=== PATIENT | female | born 1995 | race Caucasian/White ===

== ENCOUNTER 2017-05-25 13:19 | Emergency (ER) | payer MEDICAID ==
[~2017-05-25] VITALS: Ht 157.5 cm; Wt 54.9 kg
[~2017-05-25 13:19] MED LIST: APAP/BUTALBITAL1 TA1 PO; BACTRIM DS 8001 TAB PO; BENTYL20 MG PO; BIRTH CONTROL; BUPRENORPHINE H1 TA2 SL; DICLOFENAC 50MG50 MG PO; DICYCLOMINE HCL20 MG PO; ESTRACE 2MG. TAB2 MG PO; ETODOLAC400 MG PO; IMPLANON68 MG ID; IRON TABLETS325 MG PO; KEFLEX 500MG.500 MG PO; KEFLEX500 M1 PO; LABETALOL200 MG PO; MUCINEX ER600 MG PO; NOMEDS *; NOMEDS XX; ONDANSETRON4 M1 PO; ORTHO TRI-CYCLE1 TAB PO; PRENATAL PLUS1 TA1 PO; ROBAXIN500 M1 PO; SERTRALINE 50MG50 MG PO; STERAPRED DS10 MG PO; VOLTAREN75 MG PO; ZANTAC 150150 MG OR; ZITHROMAX Z PA250 MG PO; ZOFRAN ODT8 MG PO; ZOLOFT25 MG PO
[2017-05-25 13:49] LABS: HEMOGLOBIN 14.7 g/dL (12.2-16.2)
[2017-05-25 13:50] LABS: LYMPH # 1.2 K/mm3 (0.7-4.5); LYMPH % 18.9 % (10-50.0)
--- NOTE | 2017-05-25 14:13 | Emergency Room Report ---
History of Present Illness Time Seen by 135Florentin Presenting Problem in Triage Pt arrived:Walked Presenting Problem:PT STATES SHE IS 3 WEEKS AND HAS STOPPED USING HER SUBOXONE ON SUNDAY. PT IS NAUSEATED, BODY ACHES, LIGHT HEADED. 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 N Clinical Suspician of Infection? N Mental Status: 1 - Regular (Normal Baseline) Sepsis Risk:Low Sepsis Risk Have you (or family members/close friends) recently traveled outside the [place]? N If Yes, where/when: Have you had exposure to infectious disease within the past month? TB? Other? Specify: Comment The patient complains of symptoms of Suboxone withdrawal. She has been on Suboxone for a couple of years. She stopped taking it 6 days ago after she found out she was 9 days ago. Approximately 2 days ago she began having some vomiting, diarrhea, chills, sweats, cravings. She estimates she is 3 weeks . She is 1. She has not had a visit for this , but her wind site manager is Dr. Rodriguez. She went through detox at [facility] years ago and requests that we consult them to see if they would accept her as an inpatient. ALLERGIES Coded Allergies: No Known Allergies (04/26/17) Home Medications Reported Medications BUPRENORPHINE HCL/NALOXONE HCL (Buprenorphin-Naloxon 8-2 MG Sl) 2 TAB SL BID #13 History Medical History General CAD? No Angina: No CT: No Hypertension? Yes Hyperlipidemia? No CHF? No DVT? No PE? No COPD? No Asthma? Yes Anemia? No GERD? No Gastric ulcers? No GI Bleed? No Hernia? No Thyroid Problems? No Hypothyroidism? No CVA? No Seizures? No Diabetes? No Renal Insuffiency? No End Stage Renal Disease? No UTI? No Stones? No GB Disease: Yes Nephritic Syndrome? No Asplenia? No Hepatitis? Yes Sickle Cell Disease? No Arthritis? No Migraines? No Cataracts? No Glaucoma? No MRSA? No HIV? No TB? No Anxiety? Yes Depression? Yes Cancer? 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 Est.Due Date 02/11/[address] RODRIGUEZ Family History Family Hx Diabetes No CAD No Hypertension No Hyperlipidemia No Cancer No TB No Social History Smoking Hx Smoker: Current Every Day Smoker Tobacco: Yes Type Cigarettes Packs/day < 1 Pack Alcohol Alcohol: No Review of Systems All Other Systems Reviewed and Negative Constitutional diaphoresis, malaise Gastrointestinal abdominal pain, diarrhea, vomiting Musculoskeletal joint pain, muscle pain Psychiatric/Neurological headache Physical Exam Vital Signs Vital Signs Date Time Temp Pulse Resp B/P Pulse O2 O2 Flow FiO2 Ox Delivery Rate 05/25 1550 87 18 132/77 97 05/25 1509 87 18 132/77 97 05/25 1402 100 18 98 05/25 1325 98.8 103 18 144/84 98 General Appearance no apparent distress Eye Exam - bilateral eye normal exam, bilateral eye PERRL, bilateral eye EOMI Ear, Nose, Throat hearing grossly normal, normal ENT inspection Neck normal inspection, non-tender, supple, full range of motion Respiratory Status Yes: trachea midline, chest symmetrical, non tender chest. No: respiratory distress. Lung Sounds bilateral: normal breath sounds, lungs clear. 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 No Candelario was queried for this patient? Yes Comment [id number] rxs. last rx buprenorphine on 05/19/17, 12 day supply. Results/Orders Laboratory Tests 05/25/17 1507: Opiates Screen NEGATIVE, Urine Methadone Screen NEGATIVE, Barbiturates NEGATIVE, Phencyclidine Screen NEGATIVE, Amphetamines Screen NEGATIVE, Benzodiazepines Screen NEGATIVE, Cocaine Screen NEGATIVE, Marijuana (THC) Screen NEGATIVE 05/25/17 1340: Sodium 138, Potassium 4.0, Chloride 106, Carbon Dioxide 26, BUN 9, Creatinine 0.7, Estimated Creat Clear 108, Estimated GFR (MDRD) 104, Glucose 93, Calcium 8.9, Total Bilirubin 0.6, AST 5 L, ALT 14, Alkaline Phosphatase 57, Total Protein 7.6, Albumin 4.0, Globulin 3.6 H, Albumin/Globulin Ratio 1.1, WBC 6.5, RBC 4.82, Hgb 14.7, Hct 43.5, MCV 90.3, RDW 13.4, Plt Count 156, MPV 9.2, Gran % 78.0, Gran # 5.1, Lymphocytes % 18.9, Monocytes % 3.1, Lymphocytes # 1.2, Monocytes # 0.2, PUBS MCHC 33.8, MCH 30.5 Current Medication Orders Sig/Sangeetha Start time Last Medication Dose Route Stop Time Status Admin Metoclopramide HCl 0 .STK-MED ONE 05/25 1514 DC .ROUTE Metoclopramide HCl 5 MG ONCE ONE 05/25 1445 DC 05/25 IVP 05/25 1446 1516 Sodium Chloride 1,000 ML .Q1H1M 05/25 1415 DC 05/25 IV 05/25 1515 1408 Sodium Chloride 10 ML PRN PRN 05/25 1415 DCD IV 05/26 1404 Sodium Chloride 1,000 ML .STK-MED ONE 05/25 1406 DC IV Sodium Chloride 10 ML PRN PRN 05/25 1345 DCD IV 05/26 1332 Orders Procedure Date/time Status DRUG ABUSE SCREEN (TRIAGE) 05/25 1357 Complete IV SALINE LOCK 05/25 1332 Active URINE 05/25 1332 Complete CBC WITH AUTO DIFF 05/25 1332 Complete CHEM 12 PROFILE 05/25 1332 Complete Progress - 2:35 PM: Jumana Swanson declines transfer because the patient is . Patient informed. She prefers that we investigate other inpatient detox programs. She would prefer to be inpatient. Call placed to [facility]. 2:50 PM: Nurse reports that the patient's father called and stated that she had been taking one quarter of a tablet of Suboxone and was recently put on some new medication by the Suboxone clinic to try and get her off of Suboxone. He does not know the name of the medication. 3:53 PM: Nurse reports that the patient LEFT the emergency department, eloped without further treatment. She apparently told the nurse she did not want to go to a long-term program and just decided to leave, not waiting for further instructions. Departure Departure Disposition Against Medical Advice Clinical Impression Primary Impression: Drug withdrawal Qualifiers: Substance type: opioid Qualified Code: F11.23 - Opioid dependence with withdrawal Condition STABLE ED Critical Care Critical Care No at 1601
--- NOTE | 2017-05-25 14:13 | Emergency Room Report ---
History of Present Illness Time Seen by 135Florentin Presenting Problem in Triage Pt arrived:Walked Presenting Problem:PT STATES SHE IS 2 WEEKS AND HAS STOPPED USING HER SUBOXONE ON SUNDAY. PT IS NAUSEATED, BODY ACHES, LIGHT HEADED. 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 N Clinical Suspician of Infection? N Mental Status: 1 - Regular (Normal Baseline) Sepsis Risk:Low Sepsis Risk Have you (or family members/close friends) recently traveled outside the [place]? N If Yes, where/when: Have you had exposure to infectious disease within the past month? TB? Other? Specify: Comment The patient complains of symptoms of Suboxone withdrawal. She has been on Suboxone for a couple of years. She stopped taking it 6 days ago after she found out she was 9 days ago. Approximately 2 days ago she began having some vomiting, diarrhea, chills, sweats, cravings. She estimates she is 3 weeks . She is 1. 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 She went through detox at [facility] years ago and requests that we consult them to see if they would accept her as an inpatient. ALLERGIES Coded Allergies: No Known Allergies (04/26/17) Home Medications Reported Medications BUPRENORPHINE HCL/NALOXONE HCL (Buprenorphin-Naloxon 8-2 MG Sl) 2 TAB SL BID #13 History Medical History General CAD? No Angina: No [place]: No Hypertension? Yes Hyperlipidemia? No CHF? No DVT? No PE? No COPD? No Asthma? Yes Anemia? No GERD? No Gastric ulcers? No GI Bleed? No Hernia? No Thyroid Problems? No Hypothyroidism? No CVA? No Seizures? No Diabetes? No Renal Insuffiency? No End Stage Renal Disease? No UTI? No Stones? No GB Disease: Yes Nephritic Syndrome? No Asplenia? No Hepatitis? Yes Sickle Cell Disease? No Arthritis? No Migraines? No Cataracts? No Glaucoma? No MRSA? No HIV? No TB? No Anxiety? Yes Depression? Yes Cancer? 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.Due Date 02/11/[address] RODRIGUEZ Family History Family Hx Diabetes No CAD No Hypertension No Hyperlipidemia No Cancer No TB No Social History Smoking Hx Smoker: Current Every Day Smoker Tobacco: Yes Type Cigarettes Packs/day < 1 Pack Alcohol Alcohol: No Review of Systems All Other Systems Reviewed and Negative Constitutional diaphoresis, malaise Gastrointestinal abdominal pain, diarrhea, vomiting Musculoskeletal joint pain, muscle pain Psychiatric/Neurological headache Physical Exam Vital Signs Vital Signs Date Time Temp Pulse Resp B/P Pulse O2 O2 Flow FiO2 Ox Delivery Rate 05/25 1550 87 18 132/77 97 05/25 1509 87 18 132/77 97 05/25 1402 100 18 98 05/25 1325 98.8 103 18 144/84 98 General Appearance no apparent distress Eye Exam - bilateral eye normal exam, bilateral eye PERRL, bilateral eye EOMI Ear, Nose, Throat hearing grossly normal, normal ENT inspection Neck normal inspection, non-tender, supple, full range of motion Respiratory Status Yes: trachea midline, chest symmetrical, non tender chest. No: respiratory distress. Lung Sounds bilateral: normal breath sounds, lungs clear. 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 No Candelario was queried for this patient? Yes Comment [id number] rxs. last rx buprenorphine on 05/19/17, 12 day supply. Results/Orders Laboratory Tests 05/25/17 1507: Opiates Screen NEGATIVE, Urine Methadone Screen NEGATIVE, Barbiturates NEGATIVE, Phencyclidine Screen NEGATIVE, Amphetamines Screen NEGATIVE, Benzodiazepines Screen NEGATIVE, Cocaine Screen NEGATIVE, Marijuana (THC) Screen NEGATIVE 05/25/17 1340: Sodium 138, Potassium 4.0, Chloride 106, Carbon Dioxide 26, BUN 9, Creatinine 0.7, Estimated Creat Clear 108, Estimated GFR (MDRD) 104, Glucose 93, Calcium 8.9, Total Bilirubin 0.6, AST 5 L, ALT 14, Alkaline Phosphatase 57, Total Protein 7.6, Albumin 4.0, Globulin 3.6 H, Albumin/Globulin Ratio 1.1, WBC 6.5, RBC 4.82, Hgb 14.7, Hct 43.5, MCV 90.3, RDW 13.4, Plt Count 156, MPV 9.2, Gran % 78.0, Gran # 5.1, Lymphocytes % 18.9, Monocytes % 3.1, Lymphocytes # 1.2, Monocytes # 0.2, PUBS MCHC 33.8, MCH 30.5 Current Medication Orders Sig/Sangeetha Start time Last Medication Dose Route Stop Time Status Admin Metoclopramide HCl 0 .STK-MED ONE 05/25 1514 DC .ROUTE Metoclopramide HCl 5 MG ONCE ONE 05/25 1445 DC 05/25 IVP 05/25 1446 1516 Sodium Chloride 1,000 ML .Q1H1M 05/25 1415 DC 05/25 IV 05/25 1515 1408 Sodium Chloride 10 ML PRN PRN 05/25 1415 DCD IV 05/26 1404 Sodium Chloride 1,000 ML .STK-MED ONE 05/25 1406 DC IV Sodium Chloride 10 ML PRN PRN 05/25 1345 DCD IV 05/26 1332 Orders Procedure Date/time Status DRUG ABUSE SCREEN (TRIAGE) 05/25 1357 Complete IV SALINE LOCK 05/25 1332 Active URINE 05/25 1332 Complete CBC WITH AUTO DIFF 05/25 1332 Complete CHEM 12 PROFILE 05/25 1332 Complete Progress - 2:35 PM: Jumana Swanson declines transfer because the patient is . Patient informed. She prefers that we investigate other inpatient detox programs. She would prefer to be inpatient. Call placed to [facility]. 2:50 PM: Nurse reports that the patient's father called and stated that she had been taking one quarter of a tablet of Suboxone and was recently put on some new medication by the Suboxone clinic to try and get her off of Suboxone. He does not know the name of the medication. 3:53 PM: Nurse reports that the patient LEFT the emergency department, eloped without further treatment. She apparently told the nurse she did not want to go to a long-term program and just decided to leave, not waiting for further instructions. Departure Departure Disposition Against Medical Advice Clinical Impression Primary Impression: Drug withdrawal Qualifiers: Substance type: opioid Qualified Code: F11.23 - Opioid dependence with withdrawal Condition STABLE ED Critical Care Critical Care No at 1601
[2017-05-25 15:25] LABS: AMPHETAMINES/METAMPHETAMINES NEGATIVE ng/mL (<1000)
[2017-05-25 15:50] VITALS: BP 132/77
== END 2017-05-25 15:45 | disposition left against medical advice (07) ==
LOC: ER 13:19
PROVIDERS: Emergency Medicine
DX: F11.23 Opioid dependence with withdrawal (principal); Z34.81 Encounter for supervision of other normal pregnancy, first trimester; I10 Essential (primary) hypertension; J45.909 Unspecified asthma, uncomplicated; F41.8 Other specified anxiety disorders; Z72.0 Tobacco use

== ENCOUNTER 2017-05-29 15:17 | Emergency (ER) | payer MEDICAID ==
[~2017-05-29] VITALS: Ht 157.5 cm; Wt 54.9 kg
--- NOTE | 2017-05-29 16:05 | Urgent Treatment Center Report ---
History of Present Issue Date/Time Seen by Provider 05/29/17 0405 Visit Reason Pt arrived:Walked Presenting Problem:REPORTS HEADACHES, COUGH, JEREMIAH EAR PAIN AND HEADACHES. STATES SORE THROAT X2 WEEKS. Location if Accident: Onset of symptoms date/time:/ or onset unknown for:MEDICAL HX UNKNOWN Have you (or family members/close friends) recently traveled outside the [place]? N If Yes, where/when: Have you had exposure to infectious disease within the past month? TB? Other? Specify: Patient state that she has had headache, cough, pain in both ears and sore throat for over 2 weeks now State that she recently found out she was 3 weeks . State that her mother and brother was diagnosed with Strep throat today and she was worried so she came in to get checked ALLERGIES Coded Allergies: No Known Allergies (04/26/17) Home Medications Reported Medications BUPRENORPHINE HCL/NALOXONE HCL (Buprenorphin-Naloxon 8-2 MG Sl) 2 TAB SL BID #13 History Medical History General CAD? No Angina: No [place]: No Hypertension? Yes Hyperlipidemia? No CHF? No DVT? No PE? No COPD? No Asthma? Yes Anemia? No GERD? No Gastric ulcers? No GI Bleed? No Hernia? No Thyroid Problems? No Hypothyroidism? No CVA? No Seizures? No Diabetes? No Renal Insuffiency? No UTI? No Stones? No GB Disease: Yes Nephritic Syndrome? No Asplenia? No Hepatitis? Yes Sickle Cell Disease? No Arthritis? No Migraines? No Cataracts? No Glaucoma? No MRSA? No HIV? No TB? No Anxiety? Yes Depression? Yes Cancer? No More? 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 Respiratory cough Physical Exam Vital Signs Vital Signs Date Time Temp Pulse Resp B/P Pulse O2 O2 Flow FiO2 Ox Delivery Rate 05/29 1530 98.7 79 20 106/52 97 General Appearance normal appearance, WD/WN, no apparent distress Ear, Nose, Throat sinus pain/drainage, nasal congestion, tonsillar swelling, Throat red, irritated, drainage noted Respiratory Status Yes: trachea midline, chest symmetrical, non tender chest. No: respiratory distress. 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 No Results/Orders Laboratory Tests 05/29/17 1534: Group A Strep Screen NOT DETECTED Orders Procedure Date/time Status [facility] STREP SCREEN 05/29 1540 Complete Departure Departure Time of Disposition 1617 Disposition DC Home or Self Care(routine) Clinical Impression Primary Impression: Viral upper respiratory infection Condition STABLE Referrals Viet Rainey MD (Family): 3 Days-Call Office Patient Instructions DI for Ear Pain-Adult, DI for Nasal Congestion, DI for Viral Upper Respiratory Infection -- Adult, Sore Throat Additional Instructions * Monitor Temp. Tylenol and/or Ibuprofen as needed. ER if fever is no less than 101 despite alternating Tylenol and Ibuprofen * Encourage fluids, water, Gatorade, powerade, pedialyte if infant/toddler/or child * Warm salt water gargles for throat irritation *Warm fluids *Sore throat lozenges *Sleep elevated *humidifier or vaporizer Follow up IMMEDIATELY for new or worsening of symptoms OR no noticeable improvement over the next 48-72 hours. 911 immediately for any life threatening symptoms such as chest pain or difficulty breathing Follow up with family doctor or Dr Rodriguez if symptoms persist Discharge Counseling Counseled pt/family regarding diagnosis, test results, home care, follow up needs at 1618
--- NOTE | 2017-05-29 16:05 | Urgent Treatment Center Report ---
History of Present Issue Date/Time Seen by Provider 05/29/17 2705 Visit Reason Pt arrived:Walked Presenting Problem:REPORTS HEADACHES, COUGH, JEREMIAH EAR PAIN AND HEADACHES. STATES SORE THROAT X2 WEEKS. Location if Accident: Onset of symptoms date/time:/ or onset unknown for:MEDICAL HX UNKNOWN Have you (or family members/close friends) recently traveled outside the [place]? N If Yes, where/when: Have you had exposure to infectious disease within the past month? TB? Other? Specify: Patient state that she has had headache, cough, pain in both ears and sore throat for over 2 weeks now State that she recently found out she was 3 weeks . State that her mother and brother was diagnosed with Strep throat today and she was worried so she came in to get checked ALLERGIES Coded Allergies: No Known Allergies (04/26/17) Home Medications Reported Medications BUPRENORPHINE HCL/NALOXONE HCL (Buprenorphin-Naloxon 8-2 MG Sl) 2 TAB SL BID #13 History Medical History General CAD? No Angina: No [place]: No Hypertension? Yes Hyperlipidemia? No CHF? No DVT? No PE? No COPD? No Asthma? Yes Anemia? No GERD? No Gastric ulcers? No GI Bleed? No Hernia? No Thyroid Problems? No Hypothyroidism? No CVA? No Seizures? No Diabetes? No Renal Insuffiency? No UTI? No Stones? No GB Disease: Yes Nephritic Syndrome? No Asplenia? No Hepatitis? Yes Sickle Cell Disease? No Arthritis? No Migraines? No Cataracts? No Glaucoma? No MRSA? No HIV? No TB? No Anxiety? Yes Depression? Yes Cancer? No More? 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 Respiratory cough Physical Exam Vital Signs Vital Signs Date Time Temp Pulse Resp B/P Pulse O2 O2 Flow FiO2 Ox Delivery Rate 05/29 1530 98.7 79 20 106/52 97 General Appearance normal appearance, WD/WN, no apparent distress Ear, Nose, Throat sinus pain/drainage, nasal congestion, tonsillar swelling, Throat red, irritated, drainage noted Respiratory Status Yes: trachea midline, chest symmetrical, non tender chest. No: respiratory distress. 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 No Results/Orders Laboratory Tests 05/29/17 1534: Group A Strep Screen NOT DETECTED Orders Procedure Date/time Status [facility] STREP SCREEN 05/29 1540 Complete Departure Departure Time of Disposition 1617 Disposition DC Home or Self Care(routine) Clinical Impression Primary Impression: Viral upper respiratory infection Condition STABLE Referrals Viet Rainey MD (Family): 3 Days-Call Office Patient Instructions DI for Ear Pain-Adult, DI for Nasal Congestion, DI for Viral Upper Respiratory Infection -- Adult, Sore Throat Additional Instructions * Monitor Temp. Tylenol and/or Ibuprofen as needed. ER if fever is no less than 101 despite alternating Tylenol and Ibuprofen * Encourage fluids, water, Gatorade, powerade, pedialyte if infant/toddler/or child * Warm salt water gargles for throat irritation *Warm fluids *Sore throat lozenges *Sleep elevated *humidifier or vaporizer Follow up IMMEDIATELY for new or worsening of symptoms OR no noticeable improvement over the next 48-72 hours. 911 immediately for any life threatening symptoms such as chest pain or difficulty breathing Follow up with family doctor or Dr Rodriguez if symptoms persist Discharge Counseling Counseled pt/family regarding diagnosis, test results, home care, follow up needs at 1618
[2017-05-29 16:18] VITALS: BP 106/52
== END 2017-05-29 16:20 | disposition home or self-care (01) ==
LOC: UTC 15:17
DX: J06.9 Acute upper respiratory infection, unspecified (principal); Z33.1 Pregnant state, incidental; F41.8 Other specified anxiety disorders; J45.909 Unspecified asthma, uncomplicated; F17.210 Nicotine dependence, cigarettes, uncomplicated

== ENCOUNTER 2017-06-16 21:07 | Emergency (ER) | payer MEDICAID ==
[~2017-06-16] VITALS: Ht 157.5 cm; Wt 59.0 kg
[2017-06-16] MEDS ORDERED: PRENATAL PLUS1 TA1 PO (21:15)
--- NOTE | 2017-06-16 21:19 | Emergency Room Report ---
History of Present Illness Time Seen by 2100 Presenting Problem in Triage Pt arrived:Walked Presenting Problem:C/O TINGLING ALL OVER BODY, HEADACHE, WEAKNESS AND SOB X 4-5 DAYS. 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 N Clinical Suspician of Infection? N Mental Status: 1 - Regular (Normal Baseline) Sepsis Risk:Possible Sepsis Risk Have you (or family members/close friends) recently traveled outside the [place]? N If Yes, where/when: Have you had exposure to infectious disease within the past month? N TB? Other? Specify: Source patient, RN notes reviewed, family, EMS, old records Exam Limitations no limitations Comment pt with 3-4 day hx of tingling in ext and has not felt well with sob but no fever or trauma and no rash or other c/o Cardiac Chest Pain Chest pain indicative of cardiac No Timing/Duration this evening Severity moderate ALLERGIES Coded Allergies: No Known Allergies (04/26/17) Home Medications Reported Medications MULTIVIT-MIN W/FE-FA ( Multivitamin Tablet) 1 TAB PO DAILY History Medical History General CAD? No Angina: No [place]: No Hypertension? Yes Hyperlipidemia? No CHF? No DVT? No PE? No COPD? No Asthma? Yes Anemia? No GERD? No Gastric ulcers? No GI Bleed? No Hernia? No Thyroid Problems? No Hypothyroidism? No CVA? No Seizures? No Diabetes? No Renal Insuffiency? No End Stage Renal Disease? No UTI? No Stones? No GB Disease: Yes Nephritic Syndrome? No Asplenia? No Hepatitis? Yes Sickle Cell Disease? No Arthritis? No Migraines? No Cataracts? No Glaucoma? No MRSA? No HIV? No TB? No Anxiety? Yes Depression? Yes Cancer? No More? 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 Respiratory denies cough, denies shortness of breath, denies wheezing Cardiovascular denies chest pain, denies syncope Gastrointestinal denies abdominal pain, denies diarrhea, denies vomiting Genitourinary denies: abnormal vaginal bleeding, dysuria, frequency, hesitancy, hematuria. Musculoskeletal denies back pain, denies joint pain, denies joint swelling, denies neck pain Skin denies rash Psychiatric/Neurological see HPI, denies headache, denies seizure, tingling Physical Exam Vital Signs Vital Signs Date Time Temp Pulse Resp B/P Pulse O2 O2 Flow FiO2 Ox Delivery Rate 06/160 99.1 83 20 109/68 100 06/169 99.1 104 20 144/89 100 - WBC >12,000 or <4,000 or 10% bands? 2 or more SIRS Criteria Met? B/P:144/89 MAP:107 Creatinine >2.0? UA output<0.5ml/kg/hr for 2 hrs? Platelet count >100,000? Lactate >2.0mmol/1? INR >1.2 or PTT > than 60 sec? Evidence of Organ Dysfunction? Provider documented clinical suspician of infection? N Sepsis Criteria Count: 2 Sepsis Risk: Possible Sepsis Risk General Appearance no apparent distress Eye Exam - bilateral eye PERRL, bilateral eye EOMI Ear, Nose, Throat normal ENT inspection Neck supple Respiratory Status No: respiratory distress. Lung Sounds bilateral: lungs clear. 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 No Results/Orders Laboratory Tests 06/16/172124: Sodium 137, Potassium 4.0, Chloride 103, Carbon Dioxide 27, BUN 12, Creatinine 0.6, Estimated Creat Clear 136, Estimated GFR (MDRD) 124, Glucose 88, Calcium 8.8, Total Bilirubin 0.1 L, AST 12 L, ALT 20, Alkaline Phosphatase 52, Total Protein 6.9, Albumin 3.5, Globulin 3.4 H, Albumin/Globulin Ratio 1.0 L, WBC 9.4, RBC 4.17 L, Hgb 12.8, Hct 38.3, MCV 92.1, RDW 13.3, Plt Count 145, MPV 8.0 , Gran % 66.8, Gran # 6.3, Lymphocytes % 25.8, Monocytes % 5.3, Eosinophils % 1.8, Basophils % 0.3, Lymphocytes # 2.4, Monocytes # 0.5, Eosinophils # 0.2, Basophils # 0.0, PUBS MCHC 33.4, MCH 30.7, Urine Color YELLOW, Urine Appearance SL CLOUDY, Urine pH 6.0, Ur Specific [place] 1.025, Urine Protein NEGATIVE, Urine Ketones TRACE H, Urine Blood NEGATIVE, Urine Nitrate NEGATIVE, Urine Bilirubin NEGATIVE, Urine Urobilinogen 0.2, Ur Leukocyte Esterase TRACE H, Urine WBC OCC, Ur Squamous Epith Cells 10-20, Amorphous Sediment 2+, Urine Mucus TRACE, Urine Glucose NEGATIVE Current Medication Orders Sig/Sangeetha Start time Last Medication Dose Route Stop Time Status Admin Sodium Chloride 10 ML PRN PRN 06/16 2130 AC IV 06/17 2119 Sodium Chloride 1,000 ML .Q4H 06/16 2130 AC 06/16 IV 06/17 Sodium Chloride 10 ML PRN PRN 06/16 2130 AC IV 06/17 2119 Sodium Chloride 1,000 ML .STK-MED ONE 06/16 2125 DC IV Orders Procedure Date/time Status IV SALINE LOCK 06/16 2120 Active URINALYSIS/COMPLETE 06/16 2120 Complete COMPLETE METABOLIC PANEL 06/16 2120 Complete CBC WITH AUTO DIFF 06/16 2120 Complete Departure Departure Time of Disposition 2258 Disposition DC Home or Self Care(routine) Clinical Impression Primary Impression: Acute viral syndrome Secondary Impressions: Qualifiers: Weeks of gestation: less than 8 weeks Qualified Code: Z3A.01 - Less than 8 weeks gestation of Condition STABLE Referrals Michael CONNOR,Mike Yuen Patient Instructions DI for -- Discomforts and Remedies Additional Instructions fluids and call ob pcp on sunday Discharge Counseling Counseled pt/family regarding diagnosis, follow up needs ED Critical Care Critical Care No at 2300
[2017-06-16 21:48] LABS: LYMPH # 2.4 K/mm3 (0.7-4.5); LYMPH % 25.8 % (10-50.0)
[2017-06-16 21:49] LABS: HEMOGLOBIN 12.8 g/dL (12.2-16.2); URINE BILIRUBIN - DIPSTICK NEGATIVE (NEG); URINE BLOOD NEGATIVE (NEG)
[2017-06-16 23:11] VITALS: BP 108/69
--- OUTSIDE RECORDS SUMMARY | 2017-06-17 06:12 | External Medical Summary Rpt | CCD ---
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 EMERGENCY 57351 [facility] 2 2 [facility] DEPARTMEN INC T VISIT LOW/MODER SEVERITY OFFICE 95582 [facility] GIBSON OUTPATIEN 2 2 [facility] 10 HEAL HEAL MINUTES OFFICE 10554 TAVIA SQUIRES OUTPATIEN 2 2 CATHI CATHI T VISIT 10 MINUTES HOSPITAL [facility] - 2 2 [facility] OUTPATIEN INC T OFFICE 29871 TAVIA SQUIRES OUTPATIEN 2 2 CATHI CATHI T VISIT 15 MINUTES OFFICE 46204 TAVIA SQUIRES OUTPATIEN 2 2 CATHI CATHI T VISIT 15 MINUTES OFFICE 00104 TAVIA SQUIRES OUTPATIEN 2 2 CATHI CATHI T VISIT 15 MINUTES OFFICE 88093 TAVIA SQUIRES OUTPATIEN 2 2 CATHI CATHI T VISIT 15 MINUTES OFFICE 08203 TAVIA OUTPATIEN 2 2 CATHI T VISIT 5 MINUTES OFFICE 96880 TAVIA SQUIRES OUTPATIEN 2 2 CATHI CATHI T VISIT 15 MINUTES OFFICE 81412 TAVIA SQUIRES OUTPATIEN 2 2 CATHI CATHI T VISIT 15 MINUTES OFFICE 06639 SQUIRES SQUIRES OUTPATIEN 1 1 CATHI CATHI T VISIT 15 MINUTES OFFICE 05073 [facility] 1 1 [facility]IN[facility] OF 15 ROLO MINUTES OFFICE 87912 [facility] S[facility] OUTPATIEN 1 1 [facility] VISIT CLIN[facility] OF 15 ROLO MINUTES OFFICE 95046 [facility] 1 1 [facility] T VISIT INTERNAL 15 MED MINUTES PERIODIC 26499 [facility] GIBSON PREVENTIV 1 1 [facility] PATIENT OFFICE 59074 [facility] GIBSON OUTPATIEN 1 1 [facility] 15 MINUTES OFFICE 69287 [facility] GIBSON OUTPATIEN 0 0 [facility] 15 MINUTES OFFICE 44825 [facility]OMEN'S S[facility]IR[facility], CONSULTAT 0 0 [facility] PATIENT [place] 40 MIN [facility] OFFICE 12125 [facility] GIBSON OUTPATIEN 0 0 [facility] 25 MINUTES PERIODIC 56755 [facility] GIBSON PREVENTIV 0 0 [facility] CENTER PATIENT 08-19YRS OFFICE 09990 [facility] MCKEMIE OUTPATIEN 0 0 [facility], T VISIT INTERNAL MINE F 15 MED MINUTES OFFICE 03109 [facility] GIBSON OUTPATIEN 0 0 [facility] 10 MINUTES OFFICE 24751 [facility]PATIEN 9 9 [facility] 15 BANK ACCT MINUTES OFFICE 69151 [facility] OUTPATIEN 9 9 [facility] 15 BANK ACCT MINUTES PERIODIC 30143 [facility] B[facility], PREVENTIV 9 9 [facility] E MED EST INTERNAL PATIENT MED 12-17YRS PERIODIC 74982 [facility]/CO [facility] PREVENTIV 9 9 [facility] MED EST [facility] PATIENT BANK ACCT -17YRS PERIODIC 79806 [facility] MEGHNA, PREVENTIV 8 8 [facility] A E MED EST INTERNAL PATIENT MED 12-YRS
--- OUTSIDE RECORDS SUMMARY | 2017-06-17 06:12 | External Medical Summary Rpt | CCD ---
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 SCIFRES, SINGLE 9 VISION DEYSI M VISION PLANO +/- 4.00 PER LENS FRAMES V2020 STEFFI SANCHEZ, PURCHASES 9 VISION DEYSI M OPH 51977 STEFFI INNAKIESHA, MEDICAL 9 VISION DEYSI Gore XM&EVAL COMPRHNSV ESTAB PT 1/ RPR&REFIT 30175 STEFFI SANCHEZ, G 9 VISION DEYSI M SPECTACLE S EXCEPT APHAKIA RADEX 07737 [facility] REINA, HAND 9 MEDICAL OSWALD MINIMUM 3 IMAGING VIEWS ASSOCIATE S RADEX 07705 [facility] REINA, WRIST 9 MEDICAL OSWALD COMPLETE IMAGING MINIMUM 3 ASSOCIATE VIEWS S SPMTRY 26080 [facility] MEGHNA, W/VC 8 [facility] A EXPIRATOR INTERNAL Y TAY MED W/WO MXML VOL VNTJ [facility] 82321 SUNDAR KWOK, MEDICAL 8 NITA V NITA V XM&EVAL COMPRHNSV ESTAB PT 1/> Encounters Encounter Start End Date Code Location Performer Type Date OFFICE 28427 [facility] AMAYA OUTPATIEN 7 7 [facility] T VISIT INTERNAL 15 MED MINUTES OFFICE 70788 [facility] OUTPATIEN 7 7 PHYSICIAN T VISIT S GROUP 15 MINUTES [facility]OSPITAL [facility] - 7 7 [facility] T OFFICE 75350 [facility] BESSON OUTPATIEN 7 7 VALLEY T VISIT INTERNAL 15 MED MINUTES OFFICE 27132 [facility] OUTPATIEN 7 7 PHYSICIAN T NEW 30 S GROUP MINUTES HOSPITAL [facility] - 7 7 [facility] OUT[facility] INC T EMERGENCY 37486 JAYLEEN VAN DEPT 7 7 EMERGENCY AXWELL VISIT HIGH PHYSICIAN SEVERITY& S THREAT [facility] OFFICE 68813 [facility] OUTPATIEN 7 7 VALLEY T VISIT INTERNAL 15 MED MINUTES OFFICE 47986 [facility] OUTPATIEN 6 6 PHYSICIAN T VISIT S GROUP 15 MINUTES EMERGENCY 11304 ANTONY GUY, 6 6 PHYSICIAN JR MORALES [facility], [facility] T VISIT HIGH/URGE NT SEVERITY HOSPITAL [facility] - 6 6 [facility] 40570 [facility] 6 6 [facility] INC T VISIT LOW/MODER SEVERITY EMERGENCY 51085 ANTONY GUY, 6 6 PHYSICIAN Cristian [facility] S, [facility] T VISIT HIGH/URGE NT SEVERITY EMERGENCY 47331 JAYLEEN DAY 6 6 [facility] HIGH/URGE S NT SEVERITY EMERGENCY 51641 ANTONY VILLAREAL DEPT 6 6 PHYSICIAN ROMEO VISIT S, [facility] HIGH SEVERITY& THREAT [facility] - 6 6 [facility] 01497 ANTONY MOLINA 6 6 PHYSICIAN U [facility] S, [facility] T VISIT MODERATE SEVERITY EMERGENCY 91199 ANTONY MOLINA 6 6 PHYSICIAN U [facility] S, [facility] T VISIT HIGH/URGE NT SEVERITY HOSPITAL [facility] - 6 6 [facility] 98369 [facility] 6 6 [facility] T VISIT LIMITED/M INOR PROB EMERGENCY 24973 ANTONY MOLINA 6 6 PHYSICIAN U [facility] S, [facility] T VISIT MODERATE SEVERITY OFFICE 12649 [facility] MERCEDES OUTPATIEN 5 5 [facility] T VISIT INTERNAL 15 MED MINUTES OFFICE 87026 [facility] DENISSE OUTPATIEN 5 5 NURSE ALISON CAN T VISIT PRACTITIO 15 NER GR MINUTES OFFICE 60007 [facility] HL DEPT HL DEPT 10 REENA REENA MINUTES OFFICE 15795 [facility]IS[facility] HLTH DEPT HLTH DEPT 10 REENA REENA MINUTES [facility] AR[facility]UR - 5 5 [facility] OUTPATIEN [facility] T OFFICE 70141 KMS PARDEEP-SELENA CONSULTAT 5 5 NURSE ALISON SAVAGE NEW/ESTAB NER GR PATIENT 40 MIN OFFICE 62047 [facility] MERCEDES OUTPATIEN 5 5 [facility] T VISIT INTERNAL 15 MED MINUTES HOSPITAL [facility] - 5 5 [facility]EN INC [facility] - 5 5 [facility] OUTPATIEN [facility] T EMERGENCY 34942 [facility] 5 5 EMERGENCY [facility] T VISIT PHYSICIAN HIGH/URGE S [facility] ARTHUR - 5 5 [facility] OUTPATIEN INC T Emergency LEONEL Villareal MD (ER) 4 20:56 4 21:50 [facility] Emergency LEONEL Wong MD (ER) 3 13:13 3 13:45 [facility] Emergency LEONEL Villareal MD (ER) 3 21:16 3 23:11 [facility] Emergency LEONEL Shah MD (ER) 3 11:48 3 13:54 [facility] OFFICE 12788 TAVIA SQUIRES OUTPATIEN 3 3 CATHI CATHI T VISIT 15 MINUTES HOSPITAL [facility] - 3 3 [facility] OUTPATIEN [facility] T OFFICE 06971 TAVIA SQUIRES OUTPATIEN 3 3 CATHI CATHI T VISIT 15 MINUTES OFFICE 57633 TAVIA SQUIRES OUTPATIEN 3 3 CATHI CATHI T VISIT 5 MINUTES OFFICE 94401 TAVIA SQUIRES OUTPATIEN 2 2 CATHI CATHI T VISIT 15 MINUTES HOSPITAL [facility] - 2 2 [facility]PAT[facility] INC T HOSPITAL [facility] - 2 2 [facility] OUTPATIEN INC T EMERGENCY 76086 [facility] 2 2 [facility] DEPARTMEN INC T VISIT LOW/MODER SEVERITY EMERGENCY 95734 ZAIN QUEZADA 2 2 EMERGENCY DEPARTMEN SERVICES T VISIT HIGH/URGE NT SEVERITY OFFICE 00889 [facility] GIBSON OUTPATIEN 2 2 [facility] 15 HEAL HEAL MINUTES EMERGENCY 7[address]68 [facility] DEPT 2 2 ROMEO ROMEO VISIT HIGH SEVERITY& THREAT [facility] ARTHUR - 2 2 [facility] OUTPATIEN INC T EMERGENCY 66365 AR[facility] 2 2 [facility] DEPARTMEN INC T VISIT LOW/MODER SEVERITY OFFICE 17369 [facility] GIBSON OUTPATIEN 2 2 [facility] 10 HEAL HEAL MINUTES OFFICE 19988 TAVIA SQUIRES OUTPATIEN 2 2 CATHI CATHI T VISIT 10 MINUTES HOSPITAL [facility] - 2 2 [facility] OUTPATI[facility] INC T OFFICE 45893 TAVIA SQUIRES OUTPATIEN 2 2 CATHI CATHI T VISIT 15 MINUTES OFFICE 85620 TAVIA SQUIRES OUTPATIEN 2 2 CATHI CATHI T VISIT 15 MINUTES OFFICE 13750 TAVIA SQUIRES OUTPATIEN 2 2 CATHI CATHI T VISIT 15 MINUTES OFFICE 24384 TAVIA SQUIRES OUTPATIEN 2 2 CATHI CATHI T VISIT 15 MINUTES OFFICE 01269 TAVIA OUTPATIEN 2 2 CATHI T VISIT 5 MINUTES OFFICE 04806 TAVIA SQUIRES OUTPATIEN 2 2 CATHI CATHI T VISIT 15 MINUTES OFFICE 82598 TAVIA SQUIRES OUTPATIEN 2 2 CATHI CATHI T VISIT 15 MINUTES OFFICE 23165 SQUIRES SQUIRES OUTPATIEN 1 1 CATHI CATHI T VISIT 15 MINUTES OFFICE 26869 [facility] S[facility] OUTPATIEN 1 1 [facility]ISIT [facility]IN[facility] OF 15 ROLO MINUTES OFFICE 90743 [facility] S[facility] OUTPATIEN 1 1 [facility] T VISIT CLINIC OF 15 ROLO MINUTES OFFICE 45627 [facility] BESSON OUTPATIEN 1 1 [facility] T VISIT INTERNAL 15 MED MINUTES PERIODIC 96208 [facility] GIBSON PREVENTIV 1 1 [facility] PATIENT OFFICE 96265 [facility] GIBSON OUTPATIEN 1 1 [facility] 15 MINUTES OFFICE 79151 [facility] GIBSON OUTPATIEN 0 0 [facility] 15 MINUTES OFFICE 68217 WOMEN'S SQUIRES, CONSULTAT 0 0 [facility] PATIENT [place] 40 MIN [facility] OFFICE 97655 ARTH[facility] GIBSON OUTPATIEN 0 0 [facility] 25 MINUTES PERIODIC 83347 AR[facility] GIBSON PREVENTIV 0 0 [facility] CENTER PATIENT 08-19YRS OFFICE 57082 [facility] MCKEMIE OUTPATIEN 0 0 [facility], T VISIT INTERNAL MINE F 15 MED MINUTES OFFICE 44344 [facility] GIBSON OUTPATIEN 0 0 [facility] 10 MINUTES OFFICE 16876 [facility] OUTPATIEN 9 9 [facility] 15 BANK ACCT MINUTES OFFICE 81450 [facility] OUTPATIEN 9 9 [facility] 15 BANK ACCT MINUTES PERIODIC 56581 [facility] BESSON, PREVENTIV 9 9 [facility] A E MED EST INTERNAL PATIENT MED 12-17YRS PERIODIC 98784 [facility] PREVENTIV 9 9 [facility] E MED EST [facility] PATIENT BANK ACCT -17YRS PERIODIC 31368 [facility] MEGHNA, PREVENTIV 8 8 [facility] A E MED EST INTERNAL PATIENT MED 12-YRS
--- OUTSIDE RECORDS SUMMARY | 2017-06-17 06:17 | External Medical Summary Rpt | CCD ---
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 IADNA 40222 ARTHUR GIBSON CHLAMYDIA 0 [facility] CENTER TRACHOMAT IS AMPLIFIED PROBE TQ SMR PRIM 59081 ARTHUR GIBSON SRC WET [address] [facility] CENTER NFCT AGT CONTRACEP S4993 ARTHUR GIBSON TIVE 0 [facility] HEALTH PILLS FOR [facility] CONTROL CYTP 20150 PATHOLOGY PATHOLOGY CERVICAL/ 0 & & VAGINAL CYTOLOGY CYTOLOGY REQ LAB LAB INTERP PHYSICIAN CYTP 68687 PATHOLOGY PATHOLOGY CERV/VAG 0 & & AUTO THIN CYTOLOGY CYTOLOGY LAYER LAB LAB PREP MNL SCREEN RADIOLOGI 79413 [place] Eva MOTLEY 0 MEDICAL DUNIA Baxter EXAMINATI IMAGING ON KNEE 3 ASSOCIATE VIEWS S CONTRACEP S4993 ARTHUR GIBSON TIELIZABETH 0 [facility] HEALTH PILLS FOR [facility] CONTROL CONTRACEP S4993 DHS/CO ARTHUR TIVE [address] [place] [address] HEALTH PILLS FOR [facility] BANK ACCT CONTROL URINE 68800 DHS/CO ARTHUR [address] [place] [address] TEST [facility] VISUAL BANK ACCT COLOR CMPRSN METHS CONTRACEP A4267 DHS/CO ARTHUR TIVE [address] [place] [address] CONDOM BANK ACCT MALE EACH CONTRACEP J7304 [facility]/CO ARTHUR TIVE [address] [place] [address] [facility] BANK ACCT CONTAININ G PATCH EA CONTRACEP J7304 DHS/CO ARTHUR TIVE [address] [place] [address] [facility] B[facility] ACCT CONTAININ G PATCH EA CONTRACEP A4267 DHS/CO ARTHUR TIVE [address] [place] [address] CONDOM BANK ACCT MALE EACH IADNA 25873 DHS/CO ARTHUR NEISSERIA 9 [facility] GONORRHOE BANK ACCT AE AMPLIFIED PROBE TQ IADNA 40394 DHS/CO ARTHUR CHLAMYDIA 9 [facility] TRACHOMAT BANK ACCT IS AMPLIFIED PROBE TQ CYTP 35335 DHS/CO ARTHUR CERV/VAG 9 [facility] AUTO [facility] LAYER BANK ACCT PREP MNL SCREEN RPR&REFIT 47926 STEFFI SANCHEZ, G 9 VISION DEYSI M SPECTACLE S EXCEPT APHAKIA SPHERE V2100 STEFFI SANCHEZ, SINGLE 9 VISION DEYSI M VISION PLANO +/- 4.00 PER LENS FRAMES V2020 STEFFI SANCHEZ, PURCHASES 9 VISION DEYSI M OPHTH 71821 STEFFI LIZAMAKIESHA, MEDICAL 9 VISION DEYSI M XM&EVAL COMPRHNSV ESTAB PT 1/ RADEX 96721 VIR[place]IA REINA, HAND 9 MEDICAL OSWALD MINIMUM 3 IMAGING VIEWS ASSOCIATE S RADEX 68327 [place] REINA, WRIST 9 MEDICAL OSWALD COMPLETE IMAGING MINIMUM 3 ASSOCIATE VIEWS S SPMTRY 63792 [facility] MEGHNA, W/VC 8 [facility] A EXPIRATOR INTERNAL Y TAY MED W/WO MXML VOL VNTJ [facility] 84774 SUNDAR KWOK, MEDICAL 8 NITA V NITA V XM&EVAL COMPRHNSV ESTAB PT 1/ Encounters Encounter Start End Date Code Location Performer Type Date OFFICE 25847 [facility] OUTPATIEN 7 7 [facility] T VISIT INTERNAL 15 MED MINUTES [facility] - 7 7 [facility] T OFFICE 67413 [facility] OUT[facility] 7 7 PHYSICIAN T VISIT S GROUP 15 MINUTES OFFICE 16250 [facility] OUTPATIEN 7 7 [facility] T VISIT INTERNAL 15 MED MINUTES OFFICE 59589 [facility] OUTPATI[facility] 7 7 PHYSICIAN T NEW 30 S GROUP MINUTES HOSPITAL AR[facility]UR - 7 7 [facility] OUTPATIEN INC T EMERGENCY 19966 [facility] 7 7 EMERGENCY [place]WE[place] VISIT HIGH PHYSICIAN SEVERITY& [facility] OFF[facility] 77726 [facility] [place] VISIT INTERNAL 15 MED MINUTES OFFICE 95597 [facility] 6 PHYSICIAN T VISIT S GROUP 15 MINUTES EMERGENCY 65620 ANTONY GUY, 6 6 PHYSICIAN JR Cristian [facility] S, [facility] HIGH/URGE NT SEVERITY EMERGENCY 21015 ANTONY GUY, 6 6 PHYSICIAN JR [facility] S, [facility] T VISIT HIGH/URGE NT SEVERITY EMERGENCY 53640 [facility] 6 6 [facility] T VISIT LOW/MODER SEVERITY HOSPITAL ARTHUR - 6 6 [facility] EMERGENCY 92171 JAYLEEN DAY 6 6 EMERGENCY DEPARTMEN T VISIT PHYSICIAN HIGH/URGE S NT SEVERITY EMERGENCY 49364 ANTONY HIGGINBOTHAM DEPT 6 6 PHYSICIAN ROMEO VISIT [facility] HIGH SEVERITY& [facility] H[facility]PITAL AR[facility] - 6 6 [facility] OUTPATI[facility] INC T EMERGENCY 50643 ANTONY MOLINA 6 6 PHYSICIAN U [facility] S, [facility] T VISIT MODERATE SEVERITY EMERGENCY 12010 ANTONY MOLINA 6 6 PHYSICIAN U [facility] S, [facility] T VISIT HIGH/URGE NT SEVERITY EMERGENCY 69722 ARTHUR 6 6 [facility] VISIT LIMITED/M INOR PROB HOSPITAL ARTHUR - 6 6 [facility] OUTPATIEN INC T EMERGENCY 80589 ANTONY MOLINA 6 6 PHYSICIAN U [facility] S, [facility] VISIT MODERATE SEVERITY OFFICE 57710 [facility] OUTPATIEN 5 5 [facility] JACIEL T VISIT INTERNAL 15 MED MINUTES OFFICE [address] [facility] KUNS-ADKI OUTPATIEN 5 5 NURSE NS CAN T VISIT PRACTITIO 15 NER GR MINUTES OFFICE 35303 [facility] 5 5 [facility] T VISIT [facility] DEPT [facility] DE[facility] 10 REENA REENA MINUTES OFFICE 78427 [facility] 5 5 [facility] T VISIT [facility] DEPT [facility] DEPT 10 REENA REENA MINUTES HOSPITAL ARTHUR - 5 5 [facility]EN [facility] OFFICE [address] [facility] PARDEEP-SELENA CONSULTAT 5 5 NURSE NS CAN ION PRACTITIO NEW/ESTAB NER GR PATIENT 40 MIN OFFICE 70382 [facility] OUT[facility]IEN 5 5 [facility] T VISIT INTERNAL 15 MED MINUTES HOSPITAL ARTHUR - 5 5 [facility]EN [facility] HOSPITAL ARTHUR - 5 5 [facility] EMERGENCY 53867 [facility] 5 5 EMER[facility] T VISIT PHYSICIAN HIGH/URGE S NT SEVERITY HOSPITAL AR[facility] - 5 5 [facility] ARTHUR - 3 3 [facility] OFFICE 82128 TAVIA SQUIRES OUTPATIEN 3 3 CATHI CATHI T VISIT 15 MINUTES OFFICE 53856 [facility] SQUIRES OUTPATIEN 3 3 CATHI CATHI T VISIT 15 MINUTES OFFICE 95838 [facility] SQUIRES OUTPATIEN 3 3 CATHI CATHI T VISIT 5 MINUTES OFFICE 18603 [facility] SQUIRES OUTPATIEN 2 2 CATHI CATHI T VISIT 15 MINUTES HOSPITAL ARTHUR - 2 2 [facility] OUTPATIEN [facility] ARTHUR - 2 2 [facility] OUTPATIEN INC T EMERGENCY 80317 ZAIN QUEZADA 2 2 EMERGENCY [facility] T VISIT HIGH/URGE NT SEVERITY EMERGENCY 43385 [facility] 2 2 [facility] INC T VISIT LOW/MODER SEVERITY OFFICE 01130 AR[facility] ARTHUR OUTPATIEN 2 2 [facility] 15 HEAL HEAL MINUTES EMERGENCY 33869 ARTHUR 2 2 [facility] DEPARTMEN INC T VISIT LOW/MODER SEVERITY EMERGENCY 10862 [facility] DEPT 2 2 ROMEO ROMEO VISIT HIGH SEVERITY& [facility] ARTHUR - 2 2 [facility] OUTPATIEN INC T OFFICE 29092 ARTHUR GILLESPIEON OUTPATIEN 2 2 [facility] 10 HEAL HEAL MINUTES OFFICE 22692 TAVIA SQUIRES OUTPATIEN 2 2 CATHI CATHI T VISIT 10 MINUTES HOSPITAL ARTHUR - 2 2 [facility] OUTPATIEN INC T OFFICE 23805 TAVIA SQUIRES OUTPATIEN 2 2 CATHI CATHI T VISIT 15 MINUTES OFFICE 78494 [facility] SQUIRES OUTPATIEN 2 2 CATHI CATHI T VISIT 15 MINUTES OFFICE 67736 TAVIA GARCIAE OUTPATIEN 2 2 CATHI CATHI T VISIT 15 MINUTES OFFICE 96996 TAVIA GARCIAE OUTPATIEN 2 2 CATHI CATHI T VISIT 15 MINUTES OFFICE 24478 SQUIRES OUTPATIEN 2 2 CATHI T VISIT 5 MINUTES OFFICE 23313 TAVIA SQUIRES OUTPATIEN 2 2 CATHI CATHI T VISIT 15 MINUTES OFFICE 25709 TAVIA GARCIAE OUTPATIEN 2 2 CATHI CATHI T VISIT 15 MINUTES OFFICE 08556 TAVIA SQUIRES OUTPATIEN 1 1 CATHI CATHI T VISIT 15 MINUTES OFFICE 67009 [facility] S[facility] OUTPATIEN 1 1 HEALTH [facility]I T VISIT CLINIC OF 15 ROLO MINUTES OFFICE 46116 [facility] S[facility] OUTPATIEN 1 1 HEALTH CATHI T VISIT CLINIC OF 15 ROLO MINUTES OFFICE 17401 [facility] OUTPATIEN 1 1 [facility] VISIT INTERNAL 15 MED MINUTES PERIODIC 74475 [facility] GIBSON PREVENTIV 1 1 [facility] PATIENT OFFICE 12026 [facility] GIBSON OUTPATIEN 1 1 [facility] 15 MINUTES OFFICE 32463 [facility] GIBS[facility] OUTPATIEN 0 0 [facility] 15 MINUTES OFFICE 74545 WOMEN'S SQUIRES, CONSULTAT 0 0 [facility]ALTH ANIL [facility] PATIENT CY[place]THIA[place] 40 MIN [facility] OFFICE 30073 ARTHUR GIBSON OUTPATIEN 0 0 [facility] 25 MINUTES PERIODIC 14118 [facility] GIBSON PREVENTIV 0 0 [facility] PATIENT OFFICE 86523 [facility] MCKEMIE OUTPATIEN 0 0 [facility], T VISIT INTERNAL MINE F 15 MED MINUTES OFFICE 13478 ARTH[facility] GIBSON OUTPATIEN 0 0 [facility] 10 MINUTES OFFICE 39744 [facility] OUTPATIEN 9 [facility] 15 BANK ACCT MINUTES OFFICE 53121 [facility] OUTPATIEN 9 9 [facility] 15 BANK ACCT MINUTES PERIODIC 71714 [facility] BESSON, PREVENTIV [address] [facility] A E MED EST INTERNAL PATIENT MED S PERIODIC 61526 [facility]/CO ARTHUR PREVENTIV 9 9 [facility] E MED EST [facility] PATIENT BANK ACCT [id number] PERIODIC 61542 YENNY SNELL 8 8 [place] AD[facility]AN A E MED EST INTERNAL PATIENT MED [id number]
--- OUTSIDE RECORDS SUMMARY | 2017-06-17 06:17 | External Medical Summary Rpt | CCD ---
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 CAN T VISIT PRACTITIO 15 NER GR MINUTES OFFICE 52178 [facility] 5 5 [facility] T VISIT [facility] DEPT [facility] DEPT 10 REENA REENA MINUTES OFFICE 93985 [facility] 5 5 [facility] T VISIT [facility] DEPT [facility] DEPT 10 REENA REENA MINUTES HOSPITAL [facility] - 5 5 [facility] OUTPATIEN [facility] OFFICE 24961 [facility] PARDEEP-SELENA CONSULTAT 5 5 NURSE NS CAN ION PRACTITIO NEW/ESTAB NER GR PATIENT 40 MIN OFFICE 83349 [facility] OUT[facility]IEN [address] [facility] T VISIT INTERNAL 15 MED MINUTES HOSPITAL [facility] - 5 5 [facility] OUTPATIEN [facility] ARTHUR - 5 5 [facility] OUTPATIEN [facility] EMERGENCY 36741 [facility] 5 5 EMERGENCY [facility] T VISIT PHYSICIAN HIGH/URGE S NT SEVERITY HOSPITAL AR[facility] - 5 5 [facility] ARTHUR - 3 3 [facility] OUTPATIEN [facility] OFFICE 59636 [facility] SQUIRES OUTPATIEN 3 3 CATHI CATHI T VISIT 15 MINUTES OFFICE 33259 [facility] OUTPATIEN 3 3 CATHI CATHI T VISIT 15 MINUTES OFFICE 99965 [facility] OUTPATIEN 3 3 CATHI CATHI T VISIT 5 MINUTES OFFICE 78622 [facility] OUTPATIEN 2 2 CATHI CATHI T VISIT 15 MINUTES HOSPITAL AR[facility] - 2 2 [facility] AR[facility]UR - 2 2 [facility] OUTPATIEN INC T EMERGENCY 57060 ZAIN QUEZADA 2 2 EMERGENCY [facility] T VISIT HIGH/URGE NT SEVERITY EMERGENCY 01291 [facility] 2 2 [facility] INC T VISIT LOW/MODER SEVERITY OFFICE 62623 [facility] OUTPATIEN 2 2 [facility] 15 HEAL HEAL MINUTES EMERGENCY 27765 [facility] 2 2 [facility] DEPARTMEN INC T VISIT LOW/MODER SEVERITY EMERGENCY 75349 [facility] DEPT 2 2 ROMEO ROMEO VISIT HIGH SEVERITY& THREAT [facility] ARTHUR - 2 2 [facility] OUTPATIEN INC T OFFICE 92327 AR[facility] GILLESPIEON OUTPATIEN 2 2 [facility] 10 HEAL HEAL MINUTES OFFICE 25854 TAVIA SQUIRES OUTPATIEN 2 2 CATHI CATHI T VISIT 10 MINUTES HOSPITAL AR[facility]UR - 2 2 [facility] OUTPATIEN INC T OFFICE 11293 [facility]IA SQUIRES OUTPATIEN 2 2 CATHI CATHI T VISIT 15 MINUTES OFFICE 23399 [facility] SQUIRES OUTPATIEN 2 2 CATHI CATHI T VISIT 15 MINUTES OFFICE 39260 TAVIA GARCIAE OUTPATIEN 2 2 CATHI CATHI T VISIT 15 MINUTES OFFICE 93580 TAVIA GARCIAE OUTPATIEN 2 2 CATHI CATHI T VISIT 15 MINUTES OFFICE 08218 SQUIRES OUTPATIEN 2 2 CATHI T VISIT 5 MINUTES OFFICE 38194 TAVIA SQUIRES OUTPATIEN 2 2 CATHI CATHI T VISIT 15 MINUTES OFFICE 93020 TAVIA GARCIAE OUTPATIEN 2 2 CATHI CATHI T VISIT 15 MINUTES OFFICE 36949 TVA[facility] SQUIRES OUTPATIEN 1 1 CATHI CATHI T VISIT 15 MINUTES OFFICE 54205 [facility] S[facility] 1 1 [facility] 15 ROLO MINUTES OFFICE 79025 [facility] OUTPATI[facility] 1 1 [facility]IN[facility] OF 15 ROLO MINUTES OFFICE 12975 [facility] 1 1 [facility] VISIT INTERNAL 15 MED MINUTES PERIODIC 42111 [facility] GIBSON PREVENTIV 1 1 [facility] PATIENT OFFICE 30443 [facility] GIBSON OUTPATIEN 1 1 [facility] 15 MINUTES OFFICE 17760 [facility] GIBSON OUTPATIEN 0 0 [facility] 15 MINUTES OFFICE 82331 [facility]EN[facility] S[facility], CONSULTAT 0 0 [facility] PATIENT CYNTHIANA 40 MIN [facility] OFFICE 78122 AR[facility] GIBSON OUTPATIEN 0 0 [facility] 25 MINUTES PERIODIC 15957 [facility] GIBSON PREVENTIV 0 0 [facility] PATIENT OFFICE 79393 [facility] MCKEMIE OUTPATIEN 0 0 [facility], T VISIT INTERNAL MINE F 15 MED MINUTES OFFICE 55736 AR[facility] GIBSON OUTPATIEN 0 0 [facility] 10 MINUTES OFFICE 44295 [facility] OUTPATIEN 9 [facility] 15 BANK ACCT MINUTES OFFICE 90871 [facility] OUTPATIEN 9 [facility] 15 BANK ACCT MINUTES PERIODIC 80092 [facility], PREVENTIV 9 9 [facility] A E MED EST INTERNAL PATIENT MED S PERIODIC 69199 [facility]/CO ARTHUR PREVENTIV [address] [facility] E MED EST [facility] PATIENT BANK ACCT [id number] PERIODIC 15400 YENNY SNELL 8 8 [place] [facility] A E MED EST INTERNAL PATIENT MED [id number]
--- OUTSIDE RECORDS SUMMARY | 2017-06-17 06:18 | External Medical Summary Rpt | CCD ---
Author Author , ZAIRE TAI Address Unknown Phone [email or web address] [email or web address] Name Date Rout CVX Reac Dose Comm Prov Is Faci e tion ent ider Refu lity Give sed n Infl 03-2 141 999 Hist DC No DC uenz 0-20 oric a, 17 al Seas Info onal rmat ion - Sour ce Unsp ecif ied Tdap 07-2 115 999 Hist H149 No H149 , 4-20 oric Adso 06 al rbed Info rmat ion - Sour ce Unsp ecif ied
--- OUTSIDE RECORDS SUMMARY | 2017-06-17 06:18 | External Medical Summary Rpt | CCD ---
Author Author , ZAIRE TAI Address Unknown Phone [email or web address] Immunization Name Date Rout CVX Reac Dose Comm Prov Is Faci e tion ent ider Refu lity Give sed n Infl 03-2 141 999 Hist NV No NV uenz 0-20 oric a, 17 al Seas Info onal rmat ion - Sour ce Unsp ecif ied Tdap 07-2 115 999 Hist H149 No H149 , 4-20 oric Adso 06 al rbed Info rmat ion - Sour ce Unsp ecif ied
== END 2017-06-16 23:13 | disposition home or self-care (01) ==
LOC: ER 21:07
PROVIDERS: Emergency Medicine
DX: A08.4 Viral intestinal infection, unspecified (principal); Z3A.01 Less than 8 weeks gestation of pregnancy; F17.210 Nicotine dependence, cigarettes, uncomplicated; J45.909 Unspecified asthma, uncomplicated

== ENCOUNTER → 2017-06-18 | Outpatient (CLI) | payer MEDICAID ==
[2017-06-20 08:50] LABS: HBsAg Screen Negative (Negative); HIV Screen 4th Generation wRfx Non Reactive (Non Reactive); HSV 2 IgG, Type Spec 2.72 index (0.00-0.90); Hep A Ab, IgM Negative (Negative); Hep B Core Ab, IgM Negative (Negative); Hep C Virus Ab >11.0 (0.0-0.9); Rapid Plasma Reagin, Quant Non Reactive (NonRea<1:1)
[2017-06-20 14:40] LABS: HSV, IgM I/II Combination 1.15 Ratio (0.00-0.90)
== END ==
LOC: LAB 14:03
PROVIDERS: Nurse Practitioner Obstetrics & Gynecology
DX: Z34.80 Encounter for supervision of other normal pregnancy, unspecified trimester (principal); Z72.51 High risk heterosexual behavior
CPT/HCPCS: G0432